=== PATIENT | female | born 1960 | race Two or more races ===

== ENCOUNTER → 2023-01-01 | Outpatient (CLI) | payer OTHER ==
[2023-01-01 12:54] LABS: HEMOGLOBIN 12.4 g/dL (12.0-15.00); MEAN CORPUSCULAR HGB CONC 33.6 g/dl (32.0-36.0); PLATELET COUNT 250 K/uL (150-450); RED BLOOD COUNT 3.89 M/uL (4.00-6.00); RED CELL DISTRIBUTION WIDTH 13.4 % (11.5-14.5)
[2023-01-01 13:30] LABS: ERYTHROCYTE SEDIMENTATION RATE 28 mm/hr
[2023-01-01 14:12] LABS: PH,URINE 5.5 (5.0-8.0); URINE APPEARANCE Cloudy; URINE BILIRRUBIN Moderate (NEGATIVE); URINE BLOOD Negative; URINE COLOR Dark Yellow; URINE GLUCOSE Negative (NEGATIVE); URINE LEUKOCYTE Small; URINE NITRATE Negative; URINE PROTEIN 30 (NEGATIVE)
[2023-01-01 14:14] LABS: URINE BACTERIA 3283.3 uL (0.0-1933); URINE EPITHELIAL CELLS 106.6 uL (0.0-38.8); URINE RBC 78.1 uL (0.0-20.8); URINE WBC 175.9 uL (0.0-23.2)
[2023-01-01 14:29] LABS: URINE YEAST FEW /hpf
== END | disposition home or self-care (01) ==
LOC: LAB 12:10
PROVIDERS: ATTEND Specialist
DX: N39.9 Disorder of urinary system, unspecified (principal); D64.9 Anemia, unspecified; J45.998 Other asthma; K91.5 Postcholecystectomy syndrome

== ENCOUNTER 2023-01-02 10:18 | Emergency (ER) | payer OTHER ==
[~2023-01-02] VITALS: Ht 162.6 cm; Wt 74.4 kg
== END 2023-01-02 15:45 | disposition home or self-care (01) ==
LOC: ER 10:18
DX: R10.84 Generalized abdominal pain (principal)

== ENCOUNTER 2023-01-10 08:56 | Outpatient (CLI) | payer OTHER | END 2023-01-10 09:09 | disposition home or self-care (01) | LOC: MAMO-SONO 08:56 | PROVIDERS: ATTEND Specialist | DX: Z12.39 Encounter for other screening for malignant neoplasm of breast (principal); N60.39 Fibrosclerosis of unspecified breast; Z12.31 Encounter for screening mammogram for malignant neoplasm of breast ==

== ENCOUNTER → 2023-01-16 | Outpatient (CLI) | payer OTHER | END | disposition home or self-care (01) | LOC: NUCLEAR 13:45 | PROVIDERS: ATTEND Specialist | DX: M81.0 Age-related osteoporosis without current pathological fracture (principal); Z13.820 Encounter for screening for osteoporosis ==

== ENCOUNTER 2024-10-16 09:38 | Emergency (ER) | payer OTHER ==
[~2024-10-16] VITALS: Ht 162.6 cm; Wt 65.8 kg
[2024-10-16 09:45] VITALS: BP 128/71; O2SAT 99
== END 2024-10-16 11:03 | disposition home or self-care (01) ==
LOC: ER 09:48
DX: J06.9 Acute upper respiratory infection, unspecified (principal); H92.01 Otalgia, right ear; R51.9 Headache, unspecified